=== PATIENT | female | born 1995 | race Caucasian/White ===

== ENCOUNTER 2017-11-12 20:30 | Emergency (ER) | payer SELFPAY ==
[~2017-11-12] VITALS: Ht 171.4 cm; Wt 122.7 kg
[~2017-11-12 20:30] MED LIST: PERM5CRE4 TOP; PRED20 PO; TRAZ100T50 PO
[2017-11-12 20:32] VITALS: BP 132/86; PULSE 82; RESP 16; TEMP 98.6; O2SAT 100
[2017-11-12] MEDS ORDERED: ERYTOIN10 RIGHT EYE (22:18)
--- NOTE | 2017-11-12 22:21 | PD ---
HPI Chief Complaint: Eye Problems/Injury Time Seen by Provider: 22:13 Travel History International Travel<30 days: No Contact w/Intl Traveler<30days: No Traveled to known affect area: No History of Present Illness HPI 22-year-old white female presents to emergency Department with complaints of possible pinkeye. She states that she has had swelling of her eyelids, mucousy discharge and matting. She states that this is been present now for the past day. Positive itching and irritation. She does not wear glasses or contacts. No trauma. No recent illness. PFSH Past Medical History ADHD: Yes (ADHD) Cancer: No Cardiovascular Problems: No Diabetes: No Diminished Hearing: No Psychiatric: Yes (BIPOLAR) Migraines: Yes Seizures: No Thyroid Disease: No Ulcer: No Tetanus Vaccination: < 5 Years ?: Not LMP: 10/17/2017 : 1 Para: 0 Miscarriage: 1 Dilation and Curettage (D&C): Yes Past Surgical History Surgical History: No Previous Surgery Appendectomy: No Cholecystectomy: No Other Surgery: No Social History Alcohol Use: No Tobacco Use: Yes (QUIT 2 DAYS AGO) Substance Use: No Allergies-Medications (Allergen,Severity, Reaction): Coded Allergies: No Known Allergies (Verified , 10/12/15) Uncoded Allergies: PEANUT BUTTER, DIAL SOAP, MILK (Allergy, Mild, 09/12/10) Reported Meds & Prescriptions Reported Meds & Active Scripts Active Erythromycin Opth Oint 5 Mg/Gm Oint 1 Applic RIGHT EYE QID Deltasone (Prednisone) 20 Mg Tab 20 Mg PO BID 3 Days Elimite (Permethrin) 60 Gm Cr 1 Applic TOP DIRECTED PATIENT INSTRUCTIONS: THOROUGHLY MASSAGE ELIMITE (PERMETHRIN) 5% CREAM INTO THE SKIN FROM HEAD TO TOE COVERING ALL EXTERNAL BODY PARTS. THE CREAM SHOULD BE REMOVED BY WASHING (SHOWER OR BATH) 8 TO 14 HOURS AFTER APPLICATION. PATIENTS MAY EXPERIENCE ITCHING AFTER TREATMENT AND IS RARELY A SIGN OF TREATMENT FAILURE. Reported Desyrel (Trazodone HCl) 100 Mg Tab 100 Mg PO HS Review of Systems General / Constitutional: No: Fever Eyes: Positive: Drainage, Redness, No: Blurred Vision, Photophobia, Foreign Body Sensation, Pain, Tearing, Visual changes HENT: No: Headaches Cardiovascular: No: Chest Pain or Discomfort Respiratory: No: Shortness of Breath Gastrointestinal: No: Abdominal Pain Genitourinary: No: Dysuria Musculoskeletal: No: Pain Skin: No Rash Neurologic: No: Weakness Psychiatric: No: Depression Endocrine: No: Polydipsia Hematologic/Lymphatic: No: Easy Bruising Physical Exam Narrative GENERAL: This is a well-nourished, well-developed patient, in no apparent distress. SKIN: No rashes, ecchymoses or lesions. Warm and dry. HEAD: Atraumatic. Normocephalic. EYES: PERRL, EOMI, no discharge or injection in the left eye. No scleral icterus. The right eye is injected. There is mild swelling of the upper eyelid. No foreign body seen. EARS: Clear NOSE: Nasal turbinates appear normal. THROAT: Mucosa pink and moist. Airway patent. NECK: Trachea midline. supple, moves head freely. LUNGS: Clear to auscultation. CV: Regular in rhythm. ABDOMEN: Soft nontender. EXT: No clubbing cyanosis or edema. Data Data Last Documented VS Vital Signs Date Time Temp Pulse Resp B/P (MAP) Pulse Ox O2 Delivery O2 Flow Rate FiO2 11/12/17 20:32 98.6 82 16 132/86 (101) 100 Orders Orders Ed Discharge Order (11/12/17 22:18) MDM Medical Decision Making Medical Screen Exam Complete: Yes Emergency Medical Condition: Yes Medical Record Reviewed: Yes Differential Diagnosis MDM: High Differential diagnoses: Acute conjunctivitis (bacterial, viral, allergic, traumatic), glaucoma, iritis, traumatic globe injury, foreign body, corneal abrasion, corneal ulcer, diabetic retinopathy, photokeratitis, herpes keratitis , CMV retinitis Narrative Course This is conjunctivitis Diagnosis Primary Impression: conjunctivitis Additional Instructions: Rest. Wash eyelashes with baby shampoo 3 times daily. Warm compresses. And erythromycin ophthalmic drops. Followup with an eye doctor in one week. Follow-up with a medical doctor one week. Return to the ER if any problems. Med/Other Pt SpecificInfo: Prescription(s) given Scripts Erythromycin Opth Oint (Erythromycin Opth Oint) 5 Mg/Gm Oint 1 APPLIC RIGHT EYE QID for Infection, #1 TUBE 0 Refills Prov: Dory Aviles MD 11/12/17 Disposition: 01 DISCHARGE HOME Condition: Stable Jerry Eaton Nov 12, 2017 22:21
== END 2017-11-12 22:48 | disposition home or self-care (01) ==
LOC: NEPD 20:30
DX: H10.9 Unspecified conjunctivitis (principal)
CPT/HCPCS: 99283

== ENCOUNTER 2018-03-19 21:33 | Emergency (ER) | payer SELFPAY ==
[~2018-03-19] VITALS: Ht 170.2 cm; Wt 117.0 kg
[~2018-03-19 21:33] MED LIST changes: +ERYTOIN10 RIGHT EYE; -PERM5CRE4 TOP; -PRED20 PO; -TRAZ100T50 PO
[2018-03-19 21:36] VITALS: BP 148/80; PULSE 127; RESP 18; TEMP 101.6; O2SAT 98
--- NOTE | 2018-03-19 23:32 | PD ---
HPI . Sore throat Chief Complaint: Sore throat Time Seen by Provider: 23:23 Travel History International Travel<30 days: No Contact w/Intl Traveler<30days: No History of Present Illness HPI Patient presents with chief complaint of sore throat. Onset was 3 days ago. It is associated with a fever and swollen lymph glands. She denies any other associated symptoms. She denies any known sick exposures. Her T-max has been about 101.5-102. No modifying factors. PFSH Past Medical History ADHD: Yes (ADHD) Cancer: No Cardiovascular Problems: No Diabetes: No Diminished Hearing: No Psychiatric: Yes (BIPOLAR) Immunizations Current: Yes Migraines: Yes Seizures: No Thyroid Disease: No Ulcer: No : 1 Para: 0 Miscarriage: 1 Dilation and Curettage (D&C): Yes Past Surgical History Appendectomy: No Cholecystectomy: No Other Surgery: No Social History Alcohol Use: No Tobacco Use: Yes Substance Use: No Allergies-Medications (Allergen,Severity, Reaction): Coded Allergies: No Known Allergies (Verified Adverse Reaction, Unknown, 11/12/17) Uncoded Allergies: PEANUT BUTTER, DIAL SOAP, MILK (Allergy, Mild, 09/12/10) Reported Meds & Prescriptions Reported Meds & Active Scripts Active Erythromycin Opth Oint 5 Mg/Gm Oint 1 Applic RIGHT EYE QID Review of Systems Except as stated in HPI: all other systems reviewed are Neg General / Constitutional: Positive: Fever HENT: Positive: Sore Throat Hematologic/Lymphatic: Positive: Lymph Node Enlargement Physical Exam Narrative GENERAL: Awake and alert and in no acute distress. SKIN: Warm and dry. HEAD: Normocephalic/atraumatic. EYES: Pupils are equal. Extraocular movements are intact. ENT: She has bilateral tonsillar enlargement. There is no unilateral swelling noted. The uvula is midline. NECK: Normal range of motion. Positive bilateral cervical adenopathy. CARDIOVASCULAR: Regular rate and rhythm. RESPIRATORY: Nonlabored respirations. MUSCULOSKELETAL: Atraumatic. NEUROLOGICAL: Nonfocal. PSYCHIATRIC: Appropriate mood and affect. Data Data Last Documented VS Vital Signs Date Time Temp Pulse Resp B/P (MAP) Pulse Ox O2 Delivery O2 Flow Rate FiO2 03/19/18 21:36 101.6 127 18 148/80 (102) 98 Orders Orders Group A Rapid Strep Screen (03/19/18 23:32) Strep Culture (Group A) (03/19/18 23:38) MDM Medical Decision Making Medical Screen Exam Complete: Yes Emergency Medical Condition: Yes Differential Diagnosis Differential diagnosis of sore throat includes but is not limited to viral illness, strep throat, mononucleosis, retropharyngeal abscess, peritonsillar abscess Narrative Course This patient presents with a sore throat associated with cervical lymphadenopathy and fever. Rapid strep screen is pending. Rapid strep is negative. She will be discharged home with instructions and symptomatic care. Diagnosis Primary Impression: Sore throat Patient Instructions: Pharyngitis (DC) Additional Instructions: You may use Chloraseptic spray and throat lozenges as needed. Warm salt water gargles are often helpful. You may take Tylenol or ibuprofen for fever and body aches. Disposition: 01 DISCHARGE HOME Condition: Stable Nyla Finley MD March 19, 2018 23:32
[2018-03-19 23:40] VITALS: BP 141/69; PULSE 94; RESP 16; TEMP 100; O2SAT 98
[2018-03-20 00:50] VITALS: BP 139/73
== END 2018-03-20 00:50 | disposition home or self-care (01) ==
LOC: PHED 21:33
DX: J02.9 Acute pharyngitis, unspecified (principal); R59.1 Generalized enlarged lymph nodes; F90.9 Attention-deficit hyperactivity disorder, unspecified type; F31.9 Bipolar disorder, unspecified; Z72.0 Tobacco use
CPT/HCPCS: 87081; 87880; 99283

== ENCOUNTER 2018-03-22 22:11 | Emergency (ER) | payer SELFPAY ==
[~2018-03-22] VITALS: Ht 170.2 cm; Wt 115.0 kg
[2018-03-22 22:28] VITALS: BP 145/83; PULSE 113; RESP 18; TEMP 99.5; O2SAT 97
[2018-03-22] MEDS ORDERED: MAGICADU2 SWISH-SWAL (23:14)
[2018-03-22] MEDS ORDERED: AMOX500T PO (23:14)
[2018-03-22] MEDS ORDERED: LIDOCAINE VISCOUS 2% SOLN 15 ML UDC PO ONE (23:15)
[2018-03-22] MEDS ORDERED: AMOXICILLIN (TRIHYDRATE) 500 MG CAP PO ONE (23:15)
--- NOTE | 2018-03-22 23:15 | PD ---
HPI Chief Complaint: ENT Complaint Time Seen by Provider: 22:36 Travel History International Travel<30 days: No Contact w/Intl Traveler<30days: No Traveled to known affect area: No History of Present Illness HPI 22-year-old female complains of sore throat for the past 5 days or so. She also reports pain around the tongue associated with difficulty tolerating oral intake liquid and solids. She denies fever today however does report some chills. No cough. Timing constant. Severity moderate. PFSH Past Medical History ADHD: Yes Bipolar Disorder: Yes Cancer: No Cardiovascular Problems: No Diabetes: No Diminished Hearing: No Psychiatric: Yes (BIPOLAR, MOOD DISORDER) Immunizations Current: Yes Migraines: Yes Seizures: No Thyroid Disease: No Ulcer: No Tetanus Vaccination: < 5 Years Influenza Vaccination: No ?: Not LMP: 03/08/2018 : 1 Para: 0 Miscarriage: 1 Dilation and Curettage (D&C): Yes Past Surgical History Appendectomy: No Cholecystectomy: No Other Surgery: No Social History Alcohol Use: No Tobacco Use: Yes (1.5 PPW) Substance Use: No Allergies-Medications (Allergen,Severity, Reaction): Coded Allergies: No Known Allergies (Verified Adverse Reaction, Unknown, 03/22/18) Uncoded Allergies: PEANUT BUTTER, DIAL SOAP, MILK (Allergy, Mild, 09/12/10) Reported Meds & Prescriptions Reported Meds & Active Scripts Active Erythromycin Opth Oint 5 Mg/Gm Oint 1 Applic RIGHT EYE QID Review of Systems General / Constitutional: Positive: Chills, No: Fever HENT: No: Headaches Cardiovascular: No: Chest Pain or Discomfort Respiratory: No: Shortness of Breath Physical Exam Narrative GENERAL: 20-year-old female pleasant well-nourished well-developed mild distress secondary to pain and/or anxiety Vital Signs Date Time Temp Pulse Resp B/P (MAP) Pulse Ox O2 Delivery O2 Flow Rate FiO2 03/22/18 22:28 99.5 113 18 145/83 (103) 97 SKIN: Warm and dry. ENT: There are aphthous ulcers along the margins of the tongue on the left side. Patient has exudates about the tonsils bilaterally. There is no deviation of the uvula. There is no asymmetry of the soft palate. There is minimal anterior neck adenopathy. HEAD: Normocephalic. EYES: No scleral icterus. No injection or drainage. NECK: Supple, trachea midline. No JVD or lymphadenopathy. CARDIOVASCULAR: R tachycardia. Regular rhythm. RESPIRATORY: Breath sounds equal bilaterally. No accessory muscle use. GASTROINTESTINAL: Abdomen soft, non-tender, nondistended. MUSCULOSKELETAL: No cyanosis, or edema. BACK: Nontender without obvious deformity. No CVA tenderness. Data Data Last Documented VS Vital Signs Date Time Temp Pulse Resp B/P (MAP) Pulse Ox O2 Delivery O2 Flow Rate FiO2 03/22/18 22:28 99.5 113 18 145/83 (103) 97 MDM Medical Decision Making Medical Screen Exam Complete: Yes Emergency Medical Condition: Yes Medical Record Reviewed: Yes Differential Diagnosis Streptococcal pharyngitis, aphthous ulcers, viral pharyngitis Narrative Course The patient has exudates with tender anterior nodes and fever. She also has aphthous ulcers. In this scenario will treat for strep throat and for the aphthous ulcers. Bedside education regarding treatment provided. Diagnosis Primary Impression: Pharyngitis Qualified Codes: J02.9 - Acute pharyngitis, unspecified Additional Impression: Aphthous ulcer of mouth Referrals: Primary Care Physician Med/Other Pt SpecificInfo: Prescription(s) given Scripts [id number]-Jyovnlqke Liq (Magic Mouthwash Adult Liq) 120 Ml Susp 10 ML SWISH-SWAL ACHS for Mouth sores, #120 ML 0 Refills Each 5mL contains: Nystatin 200,000units, Diphenhydramine 4.25mg, Viscous Lidocaine 10mg, Ross syrup 0.8 mL Prov: Amilcar Boyer MD 03/22/18 Amoxicillin (Amoxicillin) 500 Mg Tab 500 MG PO BID for Infection for 10 Days, #20 TAB 0 Refills Prov: Amilcar Boyer MD 03/22/18 Disposition: 01 DISCHARGE HOME Condition: Stable Amilcar Boyer MD March 22, 2018 23:14
[2018-03-23] MEDS ORDERED: NYSTAT/DIPHENHY/LIDO MOUTHWASH (Adult) 120ML SWISH-SWAL SCH (09:00)
== END 2018-03-23 | disposition home or self-care (01) ==
LOC: NEPE 22:11
DX: J02.9 Acute pharyngitis, unspecified (principal); K12.0 Recurrent oral aphthae
CPT/HCPCS: 99283